=== PATIENT | male | born 1985 | race Hispanic/Latino ===

== ENCOUNTER 2022-12-31 04:30 | Emergency (ER) | payer SELFPAY | END 2022-12-31 04:55 | disposition left against medical advice (07) | LOC: MADERS 04:30 | DX: Z53.21 Procedure and treatment not carried out due to patient leaving prior to being seen by health care provider (principal); F17.210 Nicotine dependence, cigarettes, uncomplicated ==

== ENCOUNTER 2023-01-31 17:13 | Emergency (ER) | payer OTHER, SELFPAY ==
[2023-01-31] MEDS ORDERED: Bacitracin 1 PK ONE (17:24)
[2023-01-31] MEDS ORDERED: Fluconazole 100 MG TAB ONE ×3 (17:24→17:31)
== END 2023-01-31 17:36 | disposition home or self-care (01) ==
LOC: MADERS 17:13
DX: S00.81XA Abrasion of other part of head, initial encounter (principal); B35.0 Tinea barbae and tinea capitis; F17.210 Nicotine dependence, cigarettes, uncomplicated; X58.XXXA Exposure to other specified factors, initial encounter
CPT/HCPCS: 99284

== ENCOUNTER 2023-03-17 23:01 | Emergency (ER) | payer OTHER | END 2023-03-17 23:35 | disposition home or self-care (01) | LOC: MADERS 23:01 | DX: S01.21XD Laceration without foreign body of nose, subsequent encounter (principal); F17.290 Nicotine dependence, other tobacco product, uncomplicated; W22.8XXA Striking against or struck by other objects, initial encounter ==